=== PATIENT | male | born 1990 | race Caucasian/White ===

== ENCOUNTER 2023-09-25 10:38 | Outpatient (CLI) | payer OTHER, SELFPAY ==
--- NOTE | 2023-09-25 10:47 | XR_ITS ---
FINAL REPORT CLINICAL HISTORY: PAIN IN LT FOOT FINDINGS: 3 views of the left foot were obtained. There is no acute fracture or dislocation. There are mild degenerative changes. There is a posterior calcaneal spur. The soft tissues are unremarkable. IMPRESSION: No acute process. Reviewed, Interpreted and Dictated by Fran Marin III, MD Transcribed by Jigar Woodson Authenticated and [facility]
== END 2023-09-25 23:59 ==
LOC: RAD 10:40
PROVIDERS: PCP Internal Medicine; Visit Provider Internal Medicine
DX: M79.672 Pain in left foot (principal)
CPT/HCPCS: 73630

== ENCOUNTER 2024-10-08 09:45 | Outpatient (CLI) | payer OTHER, SELFPAY ==
[2024-10-08 12:18] LABS: Basophils # 0.1 K/mm3 (0-0.2); Eosinophils # 0.1 K/mm3 (0.0-0.4); Eosinophils % 1.9 % (0.1-12.0); Hematocrit 46.2 % (42.0-52.0); Hemoglobin 15.5 g/dL (14.1-18.0); Lymphocytes # 2.2 K/mm3 (0.7-4.5); Lymphocytes % 31.4 % (10-50); Mean Corpuscular HGB Conc 33.5 g/dL (31.8-35.4); Mean Corpuscular Hemoglobin 29.8 pg (27.0-31.2); Mean Corpuscular Volume 88.7 fl (80-94); Mean Platelet Volume 10.4 fl (7.4-10.4); Monocytes # 0.6 K/mm3 (0.1-1.0); Monocytes % 8.5 % (1.7-9.3); Neutrophils # 3.9 K/mm3 (1.8-7.8); Neutrophils % 56.8 % (37.0-80.0); Platelet Count 299 K/mm3 (142-424); Red Blood Count 5.21 M/mm3 (4.60-6.20); Red Cell Distribution Width 12.5 % (11.5-17.5); White Blood Count 6.9 K/mm3 (4.8-10.8)
[2024-10-08 12:38] LABS: Chloride 107 mmol/L (98-107); Potassium 4.4 mmoL/L (3.5-5.1); Sodium 138 mmol/L (136-145)
[2024-10-08 12:41] LABS: Alanine Aminotransferase 46 U/L (12-78); Alkaline Phosphatase 53 U/L (38-126); Aspartate Amino Transferase 42 U/L (17-59); Bilirubin,Total 0.6 mg/dl (0.2-1.3); Blood Urea Nitrogen 11 mg/dl (9-20); Calcium 9.5 mg/dl (8.4-10.2); Chol/HDL Ratio 8.2 (1-3.5); Cholesterol 245 mg/dl (140-200); Estimated Glomerular Filt Rate 128 ml/min (>60); GFR (African American) 154 ML/MIN (>60); Glucose 114 mg/dl (74-100); HDL Cholesterol 30 mg/dl (40-60); Total Protein,Serum 7.2 g/dl (6.3-8.2); Triglycerides 355 mg/dl (30-150); VLDL Cholesterol 71 mg/dL (0-40)
[2024-10-08 12:57] LABS: Direct LDL Cholesterol 168.13 mg/dL (100-129)
[2024-10-08 14:17] LABS: Creatinine,Urine Random 102 mg/dL (Not Estab.)
[2024-10-08 14:18] LABS: Microalbumin < 6.000 mg/L (0-16.7)
[2024-10-08 15:04] LABS: Anion Gap 12.4 mEq/L (5-15); Carbon Dioxide 23 mmol/L (22.0-30.0)
[2024-10-08 15:06] LABS: Albumin Level 4.5 g/dl (3.5-5.0); Albumin/Globulin Ratio 1.7 (1.1-1.8); Globulin 2.7 g/dL (1.3-3.2)
[2024-10-08 15:47] LABS: Hemoglobin A1C 5.1 % (4.0-6.0)
== END 2024-10-08 23:59 | disposition home or self-care (01) ==
LOC: LAB.DROPOF 10-09 09:45
PROVIDERS: PCP Internal Medicine; Visit Provider Internal Medicine
DX: E78.5 Hyperlipidemia, unspecified (principal); E11.9 Type 2 diabetes mellitus without complications; I10 Essential (primary) hypertension; E66.01 Morbid (severe) obesity due to excess calories; Z79.84 Long term (current) use of oral hypoglycemic drugs
CPT/HCPCS: 80053; 80061; 82043; 82570; 83036; 85025